=== PATIENT | female | born 1950 | race Caucasian/White ===

== ENCOUNTER 2022-05-13 15:20 | Emergency (ER) | payer MEDICARE, SELFPAY ==
--- NOTE | ~2022-05-13 | CT_ITS ---
CT OF left shoulder EXAMINATION: CT shoulder LT wo con DATE: 05/13/2022 17:55 INDICATION: Possible left shoulder fracture TECHNIQUE: Computed tomography (CT) of the left shoulder was performed without intravenous contrast. Automated exposure control and iterative reconstruction technique were employed. The dose-length prod uct was 493.30 mGy-cm. COMPARISON: X-ray left shoulder, same date FINDINGS: Scattered groundglass and tree-in-bud opacities in the lungs. Likely cardiomegaly. Heavy co ronary artery calcification. Pulmonary arterial dilation as can be seen with pulmonary arterial hyper tension. Moderate aortic arch calcification. Very subtle, nondisplaced greater tuberosity fracture. M inimally displaced fracture of the anterior and inferior glenoid rim. Moderate degenerative change at the AC joint and glenohumeral joint. IMPRESSION: Minimally displaced osseous Bankart lesion. Subtle, nondisplaced greater trochanter fracture. Reviewed, dictated and finalized at location K. IMPRESSION: Minimally displaced osseous Bankart lesion. Subtle, nondisplaced greater trocha nter fracture.
--- NOTE | ~2022-05-13 | XR_ITS ---
EXAMINATION: XR shoulder LT min 2V INDICATION: Left shoulder pain after fall TECHNIQUE: Four views of the left shoulder are obtained. COMPARISON: None FINDINGS: There appears to be a subtle, nondisplaced fracture of the greater tuberosity of the humeru s. 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 Soft tissues ar e unremarkable. IMPRESSION: 1. Probable nondisplaced greater tuberosity fracture of the humerus. Consider CT for further evaluati on. Reviewed, dictated and finalized at location L. IMPRESSION: 1. Probable nondisplaced greater tuberosity fracture of the humerus. Consider C T for further evaluation.
[2022-05-13 15:34] VITALS: BP 97/51; PULSE 81; RESP 16; TEMP 37.1; O2SAT 99
--- NOTE | 2022-05-13 18:48 | ED.UPPEXIN ---
HPI - Extremity Injury (Upper) General Chief Complaint: Extremity Injury, Upper Stated Complaint: fall L shoulder Time Seen by Provider: 05/13/22 17:44 History of Present Illness HPI narrative: 72 year old female here for evaluation of left shoulder pain after a fall yesterday. Patient states that she was playing with her grandson when she accidentally tripped and fell over him, landing directly on the left shoulder. Reports pain at the head of the shoulder since the fall. She denies any head injury or loss of consciousness or further injury sustained in the accident. She has attempted ibuprofen with great relief of her symptoms and is currently pain-free, declines pain medicine in the ED. No numbness or tingling in the arm. Related Data Allergies Allergy/AdvReac Type Severity Reaction Status Date / Time No Known Allergies Allergy Verified 05/13/22 15:21 Review of Systems Review of Systems: Gen.: Denies fevers or chills Eyes: Denies eye pain or visual change ENT: Denies congestion Respiratory: Denies shortness of breath or cough CV: Denies chest pain or palpitations GI: Denies abdominal pain nausea, emesis or diarrhea denies burning, urgency, frequency or hematuria Musculoskeletal: Reports left shoulder pain Neuro: Denies numbness, tingling, weakness or focal weakness Skin: Denies rash Except as documented, all other systems reviewed and negative Exam Narrative: APPEARANCE: Well appearing, no pain in distress, well-nourished. Head: Normocephalic and atraumatic. EYES: PERRLA/EOMI, conjunctivae clear NOSE: No nasal drainage EARS: External ear normal in appearance THROAT: Oropharynx is clear. Mucous membranes are moist. NECK: Supple. No adenopathy, no masses. RESPIRATORY: Airway patent, respirations nonlabored. Clear to auscultation bilaterally, no rales, rhonchi, wheezing. CARDIOVASCULAR: Regular rate and rhythm without murmurs, rubs, or gallops. ABDOMINAL: Normoactive bowel sounds. Soft, nontender, nondistended. No rebound tenderness or guarding. MUSCULOSKELETAL: There is bony tenderness to palpation at the left humeral head and distal clavicle. There is no skin tenting or break in the skin integrity in this areas. Sensation is intact over the deltoid. She has no bony tenderness to palpation at the olecranon, radius or ulna, snuffbox or remainder of carpal bones. She is holding the left arm at flexion and internal rotation which she states is most comfortable position but she is able to take it through range of motion. NEURO: Normal speech. No focal neurologic deficits. SKIN: Skin is warm and dry. No rashes. PSYCHIATRIC: Normal affect/mood. Course Vital Signs Vital signs: Vital Signs Temperature 98.7 F 05/13/22 15:34 Pulse Rate 81 05/13/22 15:34 Respiratory Rate 16 05/13/22 15:34 Blood Pressure 97/51 L 05/13/22 15:34 Pulse Oximetry 99 05/13/22 15:34 Oxygen Delivery Room Air 05/13/22 15:34 Temperature 98.7 F 05/13/22 15:34 Pulse Rate 81 05/13/22 15:34 Respiratory Rate 16 05/13/22 15:34 Blood Pressure 97/51 L 05/13/22 15:34 Pulse Oximetry 99 05/13/22 15:34 Oxygen Delivery Room Air 05/13/22 15:34 MDM - Extremity Injury (Upper) MDM Narrative Medical decision making narrative: 72-year-old female here for evaluation of left shoulder pain after she sustained a mechanical fall yesterday landing directly on the head of the shoulder. She has evidence of a nondisplaced greater tuberosity fracture and a minimally displaced Bankart lesion on the XR/CT. She is neurovascularly intact distal to the fracture. She was placed in an arm sling and provided with orthopedic follow-up. Declines pain meds in the ED. Return precautions were discussed and she voiced understanding. Discharge Plan Discharge Clinical Impression: Fracture of greater tuberosity of left humerus, Bankart lesion of left shoulder Patient Disposition: Home, Self-Care Condition: Stable Instructions: An
== END 2022-05-13 19:17 | disposition home or self-care (01) ==
LOC: ANHED 19:06
PROVIDERS: Emergency Provider Physician Assistant; PCP Family Medicine
DX: S72.115A Nondisplaced fracture of greater trochanter of left femur, initial encounter for closed fracture (principal); S42.142A Displaced fracture of glenoid cavity of scapula, left shoulder, initial encounter for closed fracture; W01.0XXA Fall on same level from slipping, tripping and stumbling without subsequent striking against object, initial encounter
CPT/HCPCS: 73030; 73200; 99284